=== PATIENT | female | born 1995 | race Two or more races ===

== ENCOUNTER 2019-07-10 04:21 | Emergency (ER) | payer SELFPAY ==
[2019-07-10] MEDS ORDERED: LIDOCAINE-EPINEPH-TETRACAINE 3 ML SYRINGE TOP STA (04:28)
[2019-07-10] MEDS ORDERED: LIDOCAINE 2% 10 ML MDV SUBQ STA (04:28)
--- NOTE | 2019-07-10 05:45 | ED Physician Documentation ---
History of Present Illness - Stated complaint Stated Complaint: FACE INJURY - Chief complaint Chief Complaint: Trauma Hd/Nk - History obtained from History obtained from: Patient - History of Present Illness Timing: Last night Pain level max: 4 Pain level now: 3 - Additonal information Additional information: 24-year-old female states that she was at a [employer] party last night drinking when she tripped and fell. Injury to the right third digit, nail. Also suffered a laceration to the right eyebrow. No loss of consciousness. No vomiting. No neck or back pain. Td UTD Review of Systems Constitutional: denies: Fever, Chills Respiratory: denies: Cough GI: denies: Vomiting : denies: Now EGA Skin: denies: Rash PD PAST MEDICAL HISTORY - Past Medical History Past Medical History: No - Past Surgical History Past Surgical History: No - Present Medications Home Medications: Ambulatory Orders Medication Instructions Recorded Confirmed No Known Home Medications 07/10/19 07/10/19 - Allergies Allergies/Adverse Reactions: Allergies Allergy/AdvReac Type Severity Reaction Status Date / Time No Known Drug Allergies Allergy Verified 07/10/19 04:34 - Social History Does the pt smoke?: No Smoking Status: Never smoker Does the pt drink ETOH?: Yes - Immunizations Immunizations: TDAP >10years/unknown PD ED PE NORMAL - Vitals Vital signs reviewed: Yes - General General: Alert and oriented X 3, No acute distress - HEENT HEENT: PERRL, Ears normal, Moist mucous membranes, Pharynx benign, Other (3 cm laceration to the right eyebrow. Linear. Superficial. Periorbital ecchymosis right eye. No hyphema. No bony tenderness over the face. No scalp hematomas) - Neck Neck: Supple, no meningeal sign, No bony TTP - Back Back: No spinal TTP - Derm Derm: Warm and dry - Extremities Extremities: No deformity, No tenderness to palpate, Other (Partially avulsed fingernail from the right third digit. No bony tenderness. Full range of motion without pain. Neurovascular intact) - Neuro Neuro: Alert and oriented X 3, city director 2-12 intact, No motor deficit, No sensory deficit, Normal speech Eye Opening: Spontaneous Motor: Obeys Commands Verbal: Oriented GCS Score: 15 Results - Vitals Vitals: Vital Signs - 24 hr 07/10/19 07/10/19 04:27 06:00 Temperature 37.0 C Heart Rate 86 78 Respiratory 16 16 Rate Blood Pressure 128/77 120/68 O2 Saturation 100 96 Oxygen O2 Source Room air Procedures - Laceration (location) R eyebrow Length in cm: 3 Wound type: Linear, Superficial, Into subcut fat, Clean Neurovascular status: Sensory intact, Motor intact, Vascular intact Tendon involvement: Tendon intact, Tendon Injury Anesthesia: LET Wound Preparation: Irrigated copiously NS Skin layer closure: Dermabond Other: Patient tolerated well, No complications, Neurovascular intact Complexity: Simple PD MEDICAL DECISION MAKING - ED course Complexity details: considered differential, d/w patient ED course: 24-year-old female with a laceration to the right eyebrow. This is repaired. Tolerated well. Digital block was performed on the right third digit, the nail was placed back under the nail fold. Dermabond in place. Tolerated well. Neurovascular intact. No signs of infection. Patient counseled regarding signs and symptoms for which I believe and urgent re-evaluation would be necessary. Patient with good understanding of and agreement to plan and is comfortable going home at this time This document was made in part using voice recognition software. While efforts are made to proofread this document, sound alike and grammatical errors may occur. Departure - Departure Disposition: 01 Home, Self Care Clinical Impression: Eyebrow laceration Qualifiers: Encounter type: initial encounter Laterality: right Qualified Code(s): S01.111A - Laceration without foreign body of right eyelid and periocular area, initial encounter Fingernail avulsion Qualifiers: Encounter type: initial encounter Qualified Code(s): S61.309A - Unspecified open wound of unspecified finger with damage to nail, initial encounter Head injury Qualifiers: Encounter type: initial encounter Qualified Code(s): S09.90XA - Unspecified in jury of head, initial encounter Condition: Good Instructions: ED Laceration Facial Skin Glue Follow-Up: your,doctor in 1 week [Other] Comments: Follow up with your doctor for wound check within 1 week. Return if you worsen. Discharge Date/Time: 07/10/19 06:35
[2019-07-10 06:35] VITALS: BP 120/68
== END 2019-07-10 06:35 | disposition home or self-care (01) ==
LOC: ED 04:21
DX: S01.111A Laceration without foreign body of right eyelid and periocular area, initial encounter (principal); S61.302A Unspecified open wound of right middle finger with damage to nail, initial encounter; W01.0XXA Fall on same level from slipping, tripping and stumbling without subsequent striking against object, initial encounter
CPT/HCPCS: 12013; 99281